=== PATIENT | female | born 1965 | race Caucasian/White ===

== ENCOUNTER 2019-12-15 06:50 | Outpatient (NON) | payer OTHER, SELFPAY ==
[2019-12-15 18:04] LABS: SARS-CoV-2 RNA PCR Positive
== END 2019-12-15 06:51 ==
LOC: ANHCOVIDDT 06:53
PROVIDERS: PCP Family Medicine; Visit Provider Physician Assistant
DX: U07.1 COVID-19 (principal)
CPT/HCPCS: 87635; C9803; U0003

== ENCOUNTER 2021-11-30 12:28 | Outpatient (RCR) | payer BC, SELFPAY ==
--- NOTE | 2021-11-30 13:51 | PTOPEVAL1 ---
Assessment and note entered by Flores Shen, PT, DPT Evaluation Information Assessment Status Evaluation Diagnosis steffen knee pain Onset 5 month Subjective Information Pt states her knee pain has improved a lot. She states prior she had a lot of pain when ascending/ descending stairs, and now she can perform them normally with only a little bit of pain. She states her R knee has more pain than her L. Reported Pain Level Pain Score 0: Self Report Assessment PT Clinical Summary Marleni presents to therapy today for her initial evaluation with a diagnosis of steffen knee pain. Today she reports very mild knee pain that only occurs with stairs ambulation. Today she demonstrates equal strength, equal patellar mobility, and no deviations with stairs not gait. She demonstrates mild medial/lateral instability with increased knee valgus during single leg balance challenges, and this is equal steffen. Today she was instructed in a home program that she plans to complete. She is to follow up in a month if needed. If her knee pain does not resolve then we will consider additional scheduled skilled therapy based on the patients needs at that time. Plan of Care Interventions Patient/Caregiver Educati,Therapeutic Activities, Therapeutic Exercise PT Services Indicated Yes Treatment Frequency and follow up in a month, if needed Duration These treatments will address the objective and functional deficits as defined above. The patient will be advanced safely and appropriately in order for the patient to progress towards his/her prior level of function. Additional exercises will be introduced and as well as a comprehensive home exercise program upon discharge, if needed, ?to ensure carryover of functional gains achieved in the clinic. This treatment plan has been reviewed and agreement upon by the patient.
--- NOTE | 2022-01-05 08:21 | PCPTNOTE ---
Called pt to follow up on progress. Left voicemail with instructions to call the clinic to update.
--- NOTE | 2022-01-05 10:50 | PTOPDC ---
Assessment and note entered by Flores Shen, PT, DPT Evaluation Information Assessment Status Discharge - Pt Not Present Diagnosis steffen knee pain Onset 5 month Subjective Information Pt called today to report that her knee pain is doing great and she no longer needs to be seen for therapy. She would like to be discharged at this time. Assessment PT Clinical Summary Marleni was evaluated on 11/30/21 and was prescribed a HEP. She has been participating in this since her evaluation. She will be discharged from skilled therapy at this time. If she requires additional therapy at a later date, she will need a new order. Plan of Care Treatment Frequency and to be discharged Duration
== END 2022-01-05 11:30 | disposition home or self-care (01) ==
LOC: ANHGOSHPT 12:28
PROVIDERS: PCP Family Medicine; Visit Provider Family Medicine
DX: M22.2X1 Patellofemoral disorders, right knee (principal)
CPT/HCPCS: 97110; 97161

== ENCOUNTER → 2021-11-30 13:28 | Outpatient (CLI) | payer BC, SELFPAY ==
--- NOTE | ~2021-11-30 | XR_ITS ---
EXAM: XR knee RT min 4V DATE: 11/30/2021 13:41 HISTORY: M22.2X1 - Patellofemoral disorders, right knee . COMPARISON: None available. FINDINGS: Slightly decreased mineralization. No fracture or dislocation. No lytic or blastic lesion. Mild medial joint space narrowing. Mild tricompartmental osteophytosis. No erosion or periosteal steph nge. Soft tissues within normal limits. Small volume knee joint fluid. IMPRESSION: Mild tricompartmental osteoarthritis. No acute osseous finding in the right knee. Reviewed, dictated and finalized at location [facility]. IMPRESSION: Mild tricompartmental osteoarthritis. No acute osseous finding in t he right knee.
== END ==
PROVIDERS: PCP Family Medicine; Visit Provider Family Medicine
DX: M17.11 Unilateral primary osteoarthritis, right knee (principal)
CPT/HCPCS: 73564

== ENCOUNTER 2022-03-08 15:30 | Outpatient (RCR) | payer BC, SELFPAY ==
--- NOTE | 2022-01-25 10:54 | PTOPEVAL1 ---
Assessment and note entered by Janie Aponte DPT Evaluation Information Assessment Status Evaluation Subjective Information Pt has a diagnosis of a prolapse. Feels a sensation of pushing and has had some burning with urination. These sensations are happening more frequently. Does not want to do surgery. Reports no incontinence. Thinks she is urinating frequently but states she is going less than 10 times a day. How long she can hold urine varies, but she thinks is less than it used to be. Does not get up at night. Pain/discomfort with urination 4-5/10 highest. Unsure how often she has a BM but states it is not enough , is trying to use probiotics now. Denies pain. Pt has had discomfort with sex, attributes to scars from childbirth. Some discomfort with pelvic exams. Pt has had 2 vaginal deliveries, reports significant tearing from the first one. Reports no other [employer] surgeries or for bowel or bladder. Reports distraction from her daily activities due to frequent voiding and then the discomfort from the prolapse. Somtimes Tylenol and rest will help. Reported Pain Level Pain Score 0: Self Report Assessment PT Clinical Summary The patient is presenting to skilled therapy with a diagnosis of cystocele. She also reports a history of some pelvic pain. She presents with increased pelvic floor muscle tone and pain, as well as decreased strength and endurance which are contributing to her symptoms of heaviness and pain. She will benefit from therapy to address these impairments and safely reduce pain and dysfunction, as well as prevent future issues from POP. Plan of Care Interventions Hot Pack/Cold Pack,Manual Therapy,Neuro Re- education,Patient/Caregiver Education,Therapeutic Activities,Therapeutic Exercise,Self-Care/Home Management PT Services Indicated Yes Treatment Frequency and 1 time a week for 6 weeks Duration These treatments will address the objective and functional deficits as defined above. The patient will be advanced safely and appropriately in order for the patient to progress towards his/her prior level of function. Additional exercises will be introduced and as well as a comprehensive home exercise program upon discharge, if needed, ?to ensure carryover of functional gains achieved in the clinic. This treatment plan has been reviewed and agreement upon by the patient.
--- NOTE | 2022-03-08 16:03 | PTOPPROG ---
Assessment and note entered by Janie Aponte DPT Evaluation Information Assessment Status Progress Subjective Information Pt feels better since starting therapy. Feels less pressure, it is not occurring as often. Highest pain 6/10 and lowest 0/10. Continues to report that at times she is feeling a new abdominal pain that she is frustrated by, seems to be worse with bowel irregularity. Assessment PT Clinical Summary The patient has made good progress in therapy. She reports less pressure from pelvic organ prolapse, and demonstrates improved pelvic floor strength, endurance, and muscle tone. She reports a new abdominal pain at times. Due to her progress and new pain, plan to hold therapy to allow patient to follow up with her MD. She has been educated to continue HEP and will follow up with patient in approximately 4 weeks. Plan of Care Interventions Hot Pack/Cold Pack,Manual Therapy,Neuro Re- education,Patient/Caregiver Education,Therapeutic Activities,Therapeutic Exercise,Self-Care/Home Management PT Services Indicated Yes Treatment Frequency and hold therapy, then potentially resume 1 time a Duration week These treatments will address the objective and functional deficits as defined above. The patient will be advanced safely and appropriately in order for the patient to progress towards his/her prior level of function. Additional exercises will be introduced and as well as a comprehensive home exercise program upon discharge, if needed, ?to ensure carryover of functional gains achieved in the clinic. This treatment plan has been reviewed and agreement upon by the patient.
--- NOTE | 2022-04-19 10:33 | PTOPDC ---
Assessment and note entered by Janie Aponte, DPT Evaluation Information Assessment Status Discharge - Pt Not Present Subjective Information Assessment PT Clinical Summary Patient will be discharged this date. She has not followed up with a need for more therapy at this time.
== END 2022-04-19 10:38 | disposition home or self-care (01) ==
LOC: ANHGOSHPT 15:30
PROVIDERS: PCP Family Medicine; Visit Provider Obstetrics & Gynecology
DX: N81.11 Cystocele, midline (principal)
CPT/HCPCS: 97110; 97162

== ENCOUNTER 2022-03-27 09:22 | Outpatient (CLI) | payer BC, SELFPAY ==
--- NOTE | ~2022-03-27 | MM_ITS ---
EXAMINATION: MM screening monisha BI w valeriano HISTORY: Screening mammogram TECHNIQUE: Craniocaudal and mediolateral oblique 3-D tomosynthesis images were obtained and synthetic 2-D images were generated. CAD analysis was submitted and interpreted. COMPARISON: 07/20/2017, 01/31/2016, 11/09/2014 bilateral screening mammogram examinations BREAST PARENCHYMAL COMPOSITION: The breasts are heterogeneously dense, which may obscure small masses . FINDINGS: There is no evidence of suspicious mass, calcification, or architectural distortion to sugg est malignancy in either breast. There has been no suspicious interval change. IMPRESSION: 1. No mammographic evidence of malignancy. 2. Recommend routine screening mammography in one year. BI-RADS Category 1: Negative Reviewed, dictated and finalized at location A. RE SYSTEMS ADMINISTRATOR
== END 2022-03-27 09:23 | disposition home or self-care (01) ==
LOC: ANHIMG 09:26
PROVIDERS: PCP Family Medicine; Visit Provider Obstetrics & Gynecology
DX: Z12.31 Encounter for screening mammogram for malignant neoplasm of breast (principal)
CPT/HCPCS: 77063; 77067

== ENCOUNTER 2022-04-06 14:14 | Outpatient (CLI) | payer BC, SELFPAY ==
[2022-04-07 12:21] LABS: Kit Draw Collected
== END 2022-04-06 14:15 | disposition home or self-care (01) ==
LOC: ANHGOSHLAB 14:15
PROVIDERS: PCP Family Medicine; Visit Provider Family Medicine
DX: L50.9 Urticaria, unspecified (principal); R10.9 Unspecified abdominal pain
CPT/HCPCS: 36415

== ENCOUNTER → 2022-04-14 15:29 | Outpatient (CLI) | payer BC, SELFPAY ==
--- NOTE | ~2022-04-14 | CT_ITS ---
Non-contrast CT scan of the Abdomen and Pelvis Clinical indication: Pain Technique: 5 mm axial scans were obtained through the abdomen and pelvis without intravenous or oral contrast. Dose reduction technique was used on this scan by utilizing automated exposure control and iterative reconstruction technique. The dose-length product (DLP) was 558.31 mGy-cm. Findings: Images through the lung bases reveal no abnormalities. There is no evidence of renal or ureteral calculi. The kidneys and the ureters are nondilated. The liver, spleen, pancreas, gallbladder, and adrenals appear normal. There is no aortic aneurysm. There is no evidence of bowel obstruction. Large amount of ingested material present in the stomach. Images through the pelvis were performed. There is no evidence of ascites or lymphadenopathy. Urinary bladder unremarkable. No adnexal mass evident. No ascites. Impression: No significant abnormality identified. Reviewed, dictated and finalized at [facility]. Y CHILDHOOD TEACHER Impression: No significant abnormality identified.
== END ==
PROVIDERS: PCP Family Medicine; Visit Provider Family Medicine
DX: R10.9 Unspecified abdominal pain (principal); L50.8 Other urticaria
CPT/HCPCS: 74176

== ENCOUNTER 2024-01-20 10:00 | Emergency (ER) | payer BC, SELFPAY ==
[2024-01-20 10:14] VITALS: BP 113/77; PULSE 108; RESP 16; TEMP 37.7; O2SAT 99
--- NOTE | 2024-01-20 10:39 | ED.URI ---
HPI - URI/Sore Throat General Chief Complaint: Upper Respiratory Infection Stated Complaint: Cough/Chest Congestion Time Seen by Provider: 01/20/24 10:39 Source: patient Mode of arrival: ambulatory Limitations: no limitations History of Present Illness HPI Narrative: 58-year-old female presents with complaint of sinus congestion, sinus pressure for 2 weeks. Patient reports worsening of symptoms over the past week with cough, postnasal drainage. Worsening of sinus congestion, sinus pressure last 2 days. Feels feverish. Taking [id number] sinus meds to treat symptoms. No chest pain or shortness of breath. All systems reviewed and negative except as noted above. Related Data Allergies Allergy/AdvReac Type Severity Reaction Status Date / Time No Known Allergies Allergy Verified 01/20/24 10:30 Review of Systems Review of Systems: CONSTITUTIONAL: Reports fever, chills, or sweats. EYES: Denies visual changes, redness, or discharge. ENT: Reports rhinorrhea, congestion, sinus pressure, sinus pain. Denies sore throat, or otalgia. CARDIOVASCULAR: Denies chest pain, palpitations, or edema. RESPIRATORY: Reports cough. Denies dyspnea. GASTROINTESTINAL: Denies abdominal pain, nausea, vomiting, or diarrhea. GENITOURINARY: Denies dysuria or hematuria. SKIN: Denies rash or itching. MUSCULOSKELETAL: Denies back pain, joint pain, or myalgia. NEUROLOGIC: Denies headache, numbness, or weakness. PSYCHIATRIC: Denies anxiety or depression. All other systems reviewed are negative, except as documented in HPI. [facility] Past Medical History Medical History COVID-19 10.25.20 Normal colonoscopy 6.4.19: benign biopsy/ prominent mucosal fold/ repeat 10 years SARS-CoV-2 antibody positive 3.12.21 Family History Family History Mother Patient's mother is Family history of malignant neoplasm of breast Family history of multiple sclerosis Father Patient's father is Cerebrovascular accident Hypertension Social History Social History Smoking status: Never smoker Alcohol intake: never Substance use: never Substance use type: does not use Lack of Transportation: No Lack of Food: Never True Current Housing: I Do Not Have Housing Concerned About Future Housing: No Difficulty Paying Gas/Electric Bills: No Difficulty Paying for Meds: No Currently Unemployed: No Education: Master's Degree or Higher Difficulty w/ Childcare or Family Care: No Living arrangements: with family Occupation/Education: occupation 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 There is no relevant family history pertinent to the presenting complaint. Exam Narrative: GENERAL: This is a well-nourished, well-developed patient, ill-appearing but no acute distress HEAD: normocephalic, atraumatic. EYES: PERRL. Sclera clear/white. Vision is grossly intact. EARS: External ears normal, auditory canals clear and without drainage, TMs normal without perforation. Hearing grossly intact. NOSE: External nose normal with purulent nasal drainage, erythema to bilateral nares. Bilateral maxillary sinus tenderness on palpation. THROAT: Mucous membranes moist, erythema with postnasal drainage NECK: Neck supple, non-tender without lymphadenopathy, masses or thyromegaly. CARDIOVASCULAR: Regular rate and rhythm without murmurs, gallops, or rubs. RESPIRATORY: Clear to auscultation. Breath sounds equal bilaterally. No wheezes, rales, or rhonchi. SKIN: warm, Dry, intact with no suspicious lesions or rash, good texture and turgor. NEURO: awake, alert, and oriented to person, place and time. There were no obvious focal neurologic abnormalities. EXTREMITIES: No joint tenderness, effusion, or edema noted. Course Course Level of Care: Express Care Visit Vital Signs Vital signs: Vital Signs Temperature 37.7 C H 01/20/24 10:14 Pulse Rate 108 H 01/20/24 10:14 Respiratory Rate 16 01/20/24 10:14 Blood Pressure 113/77 01/20/24 10:14 Pulse Oximetry 99 01/20/24 10:14 Temperature 37.7 C H 01/20/24 10:14 Pulse Rate 108 H 01/20/24 10:14 Respiratory Rate 16 01/20/24 10:14 Blood Pressure 113/77 01/20/24 10:14 Pulse Oximetry 99 01/20/24 10:14 Reviewed MDM - URI/Sore Throat MDM Narrative Medical decision making narrative: Patient is aware of diagnosis, understands and agrees to treatment plan. Anticipatory guidance given. Patient agrees to follow-up as directed and is aware of reasons to seek care at the emergency department. Portions of this record may have been created with voice recognition software Will treat patient for bacterial sinusitis due to duration of symptoms and exam findings. Patient nontoxic. Differential Diagnosis Differential diagnosis: Likely upper respiratory infection, sinusitis, viral infection, influenza and pharyngitis Discharge Plan Discharge Clinical Impression: Acute bacterial sinusitis Patient Disposition: Home, Self-Care Condition: Stable Instructions: Antibiotic Form, Sinusitis (ED) Additional Instructions: Take medications as prescribed. Taking [id number] antihistamine daily such as Zyrtec or Ira. Take Tylenol or ibuprofen every 6-8 hours as needed for pain and fever. Drink at least 64 oz of water a day. Follow-up with your doctor if symptoms are not improving. Prescriptions: New doxycycline hyclate 100 mg capsule 100 mg PO BID 7 Days Qty: 14 0RF benzonatate 200 mg capsule 200 mg PO TID PRN (Reason: cough) Qty: 20 0RF methylprednisolone [Medrol (Jay)] 4 mg tablets,dose pack See Rx Instructions PO .COMPLEX Qty: 21 0RF Rx Instructions: orally per package directions fluticasone propionate [Flonase Allergy Relief] 50 mcg/actuation spray,suspension 1 spray intranasal BID Qty: 16 0RF Rx Instructions: administer into each nostril Follow-up/Referrals: PHYSICIAN,MERCHANDISE PRESENTATION ASSOCIATE [Primary Care Provider] - Time of Disposition: 10:45
== END 2024-01-20 10:52 | disposition home or self-care (01) ==
PROVIDERS: Emergency Provider Nurse Practitioner Family
DX: J01.90 Acute sinusitis, unspecified (principal); Z86.16 Personal history of COVID-19
CPT/HCPCS: 99213; G0463